=== PATIENT | female | born 1995 | race African-American/Black ===

== ENCOUNTER 2020-03-22 15:18 | Outpatient (CLI) | payer OTHER, SELFPAY ==
[2020-03-22 15:47] LABS: Basophils Percent Auto 0.2 % (0.2-1.2); Eosinophils Percent Auto 0.2 % (0-4.4); Hematocrit 32.8 % (37.0-47.0); Hemoglobin 10.7 g/dL (12.0-15.0); Immature Granulocyte Absolute 0.03 K/mm3 (0.00-0.031); Immature Granulocyte Percent A 0.3 % (0-0.5); Lymphocytes Absolute Auto 0.85 K/mm3 (0.9-3.2); Lymphocytes Percent Auto 9.1 % (18.3-44.2); Mean Corpuscular HGB Conc 32.6 g/dl (32-36); Mean Corpuscular Hemoglobin 28.5 pg (26-34); Mean Corpuscular Volume 87.5 fl (80-100); Mean Platelet Volume 10.3 fl (7.4-10.4); Monocytes Absolute Auto 0.6 K/mm3 (0.1-0.6); Monocytes Percent Auto 6.5 % (2.6-8.5); Neutrophils Absolute Auto 7.8 K/mm3 (1.3-6.7); Neutrophils Percent Auto 83.7 % (45.5-73.1); Platelet Count Result 270 k/mm3 (150-375); Red Blood Count 3.75 M/mm3 (4.2-5.4); Red Cell Distribution Width 15.3 % (11.5-14.5); White Blood Count 9.4 K/mm3 (4.5-10.0)
[2020-03-22 15:58] LABS: Hemoglobin A1C 5.3 % (<5.7)
[2020-03-22 16:30] LABS: Hepatitis B Surface Antigen Negative (Negative); Rubella IgG Antibody 30.4 IU/ML
[2020-03-22 16:39] LABS: HIV 1/2 Ab P24 Ag Result Negative (Negative)
[2020-03-22 17:13] LABS: Vitamin D 25 Hydroxy 31.9 ng/mL
[2020-03-23 07:41] LABS: Rapid Plasma Reagin Non-Reactive (NonReactive)
== END 2020-03-22 15:19 | disposition home or self-care (01) ==
PROVIDERS: Visit Provider Obstetrics & Gynecology
DX: Z36.9 Encounter for antenatal screening, unspecified (principal)
CPT/HCPCS: 36415; 82306; 83036; 85025; 86592; 86703; 86762; 86850; 86900; 86901; 87340; G0432

== ENCOUNTER 2020-03-28 16:33 | Outpatient (CLI) | payer OTHER, SELFPAY ==
--- NOTE | ~2020-03-28 | US_ITS ---
EXAMINATION: US OB /maternal detail DATE: 03/28/2020 17:29 INDICATION: dating, gestational age indeterminate TECHNIQUE: Real-time ultrasound of the pelvis was performed. COMPARISON: None. FINDINGS: There is a single living fetus in vertex presentation. The placenta is posterior and 2.3 cm from the internal cervical os. heart rate is 137 beats per minute (bpm). cardiac activity and fet al movement are noted. The amniotic fluid index is subjectively normal. The following anatomy was identified as normal: 4 chamber heart 3 vessel cord cord insertion kidneys urinary bladder stomach spine diaphragm ventricles cisterna magna cerebellum The following biometric data were obtained: Biparietal diameter (BPD): 4.5 cm; head circumference (HC): 17.7 cm; abdominal circumference (AC): 14 .0 cm; femur length (FL): 3.1 cm. These measurements are concordant. Estimated weight is 305 g +/- 45 g. As single measurements, these parameters are each equal to the following estimated gestational ages w ith ranges of +/- 2 standard deviations: BPD: 19 weeks 5 days +/- 1 weeks 5 days. HC: 20 weeks 1 days +/- 1 weeks 3 days. AC: 19 weeks 3 days +/- 2 weeks 0 days. FL: 19 weeks 5 days +/- 1 weeks 6 days. estimated gestational age based solely on measurements from this exam is 19 weeks 4 days +/- 1 weeks 0 days. IMPRESSION: 1. Single living fetus in vertex presentation. 2. Estimated weight is 305 g +/- 45 g. 3. Estimated date of delivery is 08/18/2020. Reviewed, dictated and finalized at location A.
== END 2020-03-28 16:34 | disposition home or self-care (01) ==
PROVIDERS: Visit Provider Obstetrics & Gynecology
DX: Z36.87 Encounter for antenatal screening for uncertain dates (principal)
CPT/HCPCS: 76805

== ENCOUNTER 2020-08-02 17:49 | Inpatient (IN) | payer OTHER, SELFPAY ==
[2020-08-02] VITALS (13 sets, daily range): BP systolic 98–135; BP diastolic 54–108; PULSE 60–115; RESP 16; TEMP 36.3; O2SAT 99
[2020-08-02 18:08] LABS: Basophils Percent Auto 0.2 % (0.2-1.2); Eosinophils Percent Auto 0.2 % (0-4.4); Hematocrit 29.4 % (37.0-47.0); Hemoglobin 9.3 g/dL (12.0-15.0); Immature Granulocyte Absolute 0.08 K/mm3 (0.00-0.031); Immature Granulocyte Percent A 0.6 % (0-0.5); Lymphocytes Absolute Auto 1.65 K/mm3 (0.9-3.2); Lymphocytes Percent Auto 12.7 % (18.3-44.2); Mean Corpuscular HGB Conc 31.6 g/dl (32-36); Mean Corpuscular Hemoglobin 26.3 pg (26-34); Mean Corpuscular Volume 83.1 fl (80-100); Mean Platelet Volume 10.3 fl (7.4-10.4); Monocytes Absolute Auto 0.9 K/mm3 (0.1-0.6); Monocytes Percent Auto 6.6 % (2.6-8.5); Neutrophils Absolute Auto 10.4 K/mm3 (1.3-6.7); Neutrophils Percent Auto 79.7 % (45.5-73.1); Platelet Count Result 339 k/mm3 (150-375); Red Blood Count 3.54 M/mm3 (4.2-5.4); Red Cell Distribution Width 16.4 % (11.5-14.5)
[2020-08-02] MEDS: OXYTOCIN 30 UNITS/NS 500 ML 30 UNITS/500 ML BAG 999 UNITS IV CONT (18:21)
--- NOTE | 2020-08-02 18:29 | P.HP_ITS ---
Obstetrics - Admit Note Admission Note: Rim AROm clear fluid. record reviewed. No pertinent additions to the history and/or any subsequent changes in the physical findings that are not consistent with the expected course of the were found. Additions to the history and/or subsequent changes in the physical findings foll ow. None.
--- NOTE | 2020-08-02 18:35 | PM.OBPRVD ---
OB - Delivery Note Procedure Delivery date: 08/02/20 Procedure: events: No Care Intrapartal events: None Induction method: none Delivery monitor: external FHT and external uterine Laceration description: None Estimated blood loss (mL): 250 Anesthesia type: None Disposition: observation [facility] Date of : 08/02/20 Time of : 18:17 Weeks of gestation at delivery: 37 gender: Male Weight (pounds): 6 Weight (ounces): 12 presentation: vertex Placenta delivery description: Spontaneous cord vessel description: 3 Vessels score one minute: 8 score five minutes: 9
[2020-08-02] MEDS: OXYTOCIN 30 UNITS/NS 500 ML 30 UNITS/500 ML BAG 125 UNITS IV CONT (18:55)
[2020-08-02] MEDS: IBUPROFEN 600 MG TABLET PO (18:58)
[2020-08-02 19:01] LABS: HIV 1/2 Ab P24 Ag Result Negative (Negative)
[2020-08-02] MEDS: BENZOCAINE 20% AER SPR (*SP) 56 GM CAN 1 SPRAY TOPICAL (20:43)
[2020-08-02] MEDS: WITCH HAZEL 40 PADS 1 PAD TOPICAL (20:43)
--- NOTE | 2020-08-02 21:13 | PC.NURSE ---
This patient, Claudia Serra, was received from Labor and delivery on 08/02/20 at 2057. Personal belongings list checked and signed. Patient/family oriented to unit policies and routines
[2020-08-03] MEDS: ACETAMINOPHEN 325 MG TABLET 650 MG PO ×2 (00:19→18:56)
[2020-08-03] MEDS: IBUPROFEN 600 MG TABLET PO ×3 (00:19→18:56)
[2020-08-03 05:09] LABS: Hematocrit 26.7 % (37.0-47.0); Hemoglobin 8.4 g/dL (12.0-15.0)
[2020-08-03 07:50] VITALS: BP 85/51; PULSE 56; RESP 16; TEMP 36.6; O2SAT 97
[2020-08-03 08:15] VITALS: PULSE 56; RESP 16; O2SAT 97
[2020-08-03] MEDS: POLYSACCHARIDE IRON COMPLEX 150 MG CAPSULE PO ×2 (09:36→18:55)
[2020-08-03] MEDS: DOCUSATE SODIUM 100 MG CAPSULE PO (09:36)
[2020-08-03 09:37] LABS: Rapid Plasma Reagin Non-Reactive (NonReactive)
[2020-08-03] MEDS: MULTIVIT/MIN/PREN/FOL AC/IRON TABLET 1 TAB PO (09:37)
--- NOTE | 2020-08-03 12:00 | PCDIET ---
Mother called out for assist with feeding . Consulted with patient, mother reports infant is sleepy and is having difficulties with latching. is inconsistent with eagerness and latching, some feedings infant will be easily awoken and latch other mother struggles to get to latch. Discussed and the 37 week , establishing may have its own unique set of circumstances due to their immaturity. infants may be less alert, have less stamina and may have issues with latch, suck and swallow. With the possible inability to have a vigorous suck swallow, infants may not be adequately stimulating mother and/or able to have adequate milk transfer. Pumping should be considered for additional stimulation and to offer EBM as part of supplement if needed. Reviewed infant feeding cues, frequencies, duration of feedings, feeding elimination flow sheet, and signs of adequate intake. Demonstrated stimulation techniques to wake infant for feeding. Assisted with to breast. Reviewed positioning/alignment in cross cradle, holding breast in U hold and guided asymmetrical latch on. Discussed the rational for each. Infant was able to latch correctly. nursed eagerly, with steady draws and frequent swallowing noted. Reviewed signs of a correct latch, effective nursing and suck swallow ratio. Infant was able to maintain latch without discomfort to mother. Nipple care reviewed. Advised to stimulate while feeding to keep awake and effectively feeding for increased intake and to assist with maintaining deep latch. Demonstrated how to adjust latch more deeply while feeding. Instructed mother to call out for RN assistance if she is unable to latch infant for feeding or she has discomfort with nursing. Instructed feeding should be initiated three hours from start of last feeding or if feeding cues are noted before. Mother voiced understanding of information shared.
[2020-08-03] MEDS: RHO(D) IMMUNE GLOBULIN 300 MCG SYRINGE IM (14:54)
--- NOTE | 2020-08-03 17:16 | P.PNOB_ITS ---
OB - PN: Subj Subjective Date/time seen: 08/03/20 17:16 doing okay no cmplaints today having some afterbirth pains OB - PN: Obj Data Labs CBC & Chem 7: 08/03/20 03:59 Labs: Laboratory Results - last 24 hr 08/02/20 08/02/20 08/02/20 17:57 17:57 17:57 WBC 13.0 H RBC 3.54 L Hgb 9.3 L Hct 29.4 L MCV 83.1 MCH 26.3 MCHC 31.6 L RDW 16.4 H Plt Count 339 MPV 10.3 Immature Gran % (Auto) 0.6 H Neut % (Auto) 79.7 H Lymph % (Auto) 12.7 L [place] % (Auto) 6.6 Eos % (Auto) 0.2 Baso % (Auto) 0.2 Lymph # (Auto) 1.65 [place] # (Auto) 0.9 H Eos # (Auto) 0.0 Baso # (Auto) 0.0 Abs Immat Gran (auto) 0.08 H Absolute Neuts (auto) 10.4 H Absolute Nucleated RBC 0.0 Nucleated RBC % 0.0 RPR Non-reactive HIV 1&2 Ab/P24 Ag 4thGn Negative Blood Type Antibody Screen Antibody Identification Antigen Identification GABRIEL, IgG Interpret GABRIEL, Poly Interpret GABRIEL, Complement Interp Screen Baby's Blood Type Baby's GABRIEL Doses of RhIg Required 08/02/20 08/03/20 08/03/20 17:57 03:59 03:59 WBC RBC Hgb 8.4 L Hct 26.7 L MCV MCH MCHC RDW Plt Count MPV Immature Gran % (Auto) Neut % (Auto) Lymph % (Auto) [place] % (Auto) Eos % (Auto) Baso % (Auto) Lymph # (Auto) [place] # (Auto) Eos # (Auto) Baso # (Auto) Abs Immat Gran (auto) Absolute Neuts (auto) Absolute Nucleated RBC Nucleated RBC % RPR HIV 1&2 Ab/P24 Ag 4thGn Blood Type A Negative A Negative Antibody Screen Positive TNP Antibody Identification Passive Due to RH Imm Glob Antigen Identification Cancelled GABRIEL, IgG Interpret Not Performed GABRIEL, Poly Interpret Negative GABRIEL, Complement Interp Not Performed Screen Negative Baby's Blood Type A pos Baby's GABRIEL Positive Doses of RhIg Required 1 OB - PN A/P Assessment and Plan (1) (normal spontaneous vaginal delivery): Code(s): O80 - Encounter for full-term uncomplicated delivery Status: Acute Assessment and Plan: continue with pp care (2) Anemia: Code(s): D64.9 - Anemia, unspecified Status: Acute Assessment and Plan: continue iron supplements Time Spent With Patient Time: Total time spent is greater than 50% in coordination of care (as do cumented) at patient's floor/unit and/or counseling patient: Exam GI: Other: ff below umbilicus
[2020-08-03 20:00] VITALS: BP 117/60; PULSE 70; RESP 16; TEMP 36.1; O2SAT 100
[2020-08-04] MEDS: IBUPROFEN 600 MG TABLET PO (04:46)
[2020-08-04] MEDS: ACETAMINOPHEN 325 MG TABLET 650 MG PO (04:47)
[2020-08-04 07:55] VITALS: BP 98/44; PULSE 58; RESP 16; TEMP 36.1; O2SAT 100
[2020-08-04 08:15] VITALS: PULSE 58; RESP 16; O2SAT 100
--- NOTE | 2020-08-04 09:05 | PC.NURSE ---
Observed mother verbalizes she is able to independently latch with appropriate positioning/alignment. She denies any nipple discomfort, is feeding as required and waking to feed if needed. has had at least 8 effective feedings in the past 24 hours, and is currently meeting outcomes for weight, output, jaundice and feeding frequencies. Mother states she feels confident to continue effective at home. Reviewed transition to breast milk, signs of adequate intake, and engorgement/relief. Instructed to call ICP if intake/output less than required. Reviewed regular medications mother is taking. Information provided per Sahra. Reviewed community resources on the [facility] website and in the Mom/Baby guide. Information on outpatient services provided. Mother has no further questions at this time.
[2020-08-04] MEDS: DOCUSATE SODIUM 100 MG CAPSULE PO (10:03)
[2020-08-04] MEDS: POLYSACCHARIDE IRON COMPLEX 150 MG CAPSULE PO (10:03)
[2020-08-04] MEDS: MULTIVIT/MIN/PREN/FOL AC/IRON TABLET 1 TAB PO (10:03)
--- NOTE | 2020-08-04 13:24 | PC.NURSE ---
Patient was given the opportunity to view the discharge video Mother & Baby Care, The First Two Weeks and to ask questions. Patient declined viewing the video and has been given the mother/baby guide for home reference.
--- NOTE | 2020-08-12 11:21 | PM.OBDSVD ---
DS: Admitting Diagnosis Admitting Diagnosis Admitting Diagnosis: Labor DS: Discharge Diagnosis Discharge Diagnosis (1) (normal spontaneous vaginal delivery): Code(s): O80 - Encounter for full-term uncomplicated delivery Status: Acute (2) Anemia: Code(s): D64.9 - Anemia, unspecified Status: Acute OB - DS: Summary OB Procedures : PTL Mgmt OB Procedures Intrapartum: Spontaneous Vag Delivery OB Procedures: : None Time Spent with Patient Time attestation: Total time spent providing and/or coordinating discharge services: DS: Data Data Completed and Pending Completed studies during hospitalization: Pending at discharge 08/02/20 18:21 Surgical [PTH] Routine Discharge Plan Discharge Attending physician on discharge: Maximilian Gale Discharging Clinician: Maximilian Gale Patient Disposition: Home, Self-Care Activity: may shower Diet: regular Discharge Instructions: Education: Mom and Baby Guide Given to: Mother Follow-Up: Call your delivering provider's office for an appointment to be seen in: 6 Weeks Mom and baby should come to the [facility] for the follow-up appointment. Appointment Date/Time: Wednesday, August 05, 2020 at 11:00 a.m. What to expect at your follow-up visit: Blood Pressure Check Physical Assessment Call [phone] if you are unable to keep your appointment time. BREAST CARE: * Wear a snug supportive bra. * For engorgement discomfort: Breast Feeding: * Apply warm moist washcloths * Express milk as needed to relieve engorgement * Wear loose clothing * For sore nipples: * Identify correct latch-on * Apply warm moist washcloths before and after nursing * Air dry nipples after nursing * May apply Lansinoh cream to nipples EPISIOTOMY/PERINEAL CARE: * Until bleeding stops, use your nahomi bottle after urinating * Change your pad frequently throughout the day * You may take sitz baths several times a day (fill your bathtub with warm water and soak for 20 minutes.) Do NOT bathe in the water * No tub baths until seen by your physician - You may shower ACTIVITY: * Rest as much as possible. * Do not exercise or lift anything heavier than your baby (such as laundry or other children.) * Avoid stairs or driving as much as possible. * Do not put anything into the vagina. No douching, tampons, or sexual activity until seen by physician. NOTIFY PHYSICIAN IF YOU HAVE ANY QUESTIONS OR IF ANY OF THE FOLLOWING SYMPTOMS OCCUR: * If your vaginal bleeding becomes foul smelling. * If your vaginal bleeding becomes more heavy than a period or if your bleeding changes from pink to bright red. However, you may pass an occasional walnut-sized clot once or twice for the first week . * If you experience a sharp, shooting pain in you calves. * If you discover a hard, reddened area on your breast or if you experience flu-like symptoms. DIET: * Eat regular, well-balanced meals. * Drink plenty of fluids daily. If , drink to thirst. Stand Alone Forms: General Discharge Information Follow-up/Referrals: Maximilian Gale MD [Physician] - Discharge Medications: Continued PNV [id number] [] 28 mg iron- 800 mcg Tablet 1 tablet PO DAILY RF: 0 Date of admission: 08/02/20 17:49 Primary Care Provider: PHYSICIAN,ASSOCIATE PROFESSOR OF MANAGEMENT Admitting Provider: Maximilian Gale Discharge Date/Time: 08/04/20 14:28 Attending physician on admission: Maximilian Gale
== END 2020-08-04 14:28 | disposition home or self-care (01) | DRG 560 ==
LOC: ANHLDR 17:50 → ANHOB2 21:01
PROVIDERS: Admitting Provider Obstetrics & Gynecology; Visit Provider Obstetrics & Gynecology
DX: O99.02 Anemia complicating childbirth (principal); D64.9 Anemia, unspecified; Z3A.37 37 weeks gestation of pregnancy; Z37.0 Single live birth; Z23 Encounter for immunization
CPT/HCPCS: 36415; 85014; 85018; 85025; 85461; 86592; 86703; 86850; 86880; 86900; 86901; 86902; 88307; 90384; 90471; 90686; A9270; G0008; G0432; J2590; J2790